=== PATIENT | male | born 1955 | race Caucasian/White ===

== ENCOUNTER 2020-12-05 15:44 | Emergency (ER) | payer OTHER, SELFPAY ==
[2020-12-05 16:00] VITALS: BP 134/87; PULSE 88; RESP 17; TEMP 36.6; O2SAT 97; BMI 37.1
--- NOTE | 2020-12-05 16:15 | ED_ITS ---
[facility] [place] Clinical Impression: Sinusitis Qualifiers: Sinusitis location: maxillary Chronicity: acute Recurrence: non-recurrent Qualified Code(s): J01.00 - Acute maxillary sinusitis, unspecified Disposition: Home, Self-Care Condition on Discharge: Good Instructions: DI for Sinusitis Prescriptions: Amoxicillin/Potassium Clav [Augmentin 875-125 Tablet] 1 tab PO Q12H 10 Days #20 tab Transmission Status: Pending to [facility] # predniSONE [Prednisone 20mg Tab] 20 mg PO BID 5 Days #10 tab Transmission Status: Pending to [facility] # Referrals: Madeline Grayson MD [Primary Care Provider] - Time of Disposition: 16:18 Medical Decision Making - Juancarlos Inquiry Pt receiving controlled substance: No [facility] [place] - General Stated complaint: sinus infection Time Seen by Provider: 12/05/20 16:15 - History of Present Illness Provider Complaint: Pain in left ear, left cheekbone, left jaw, and behind left eye for 5 days. No fever. Left nostril is stopped up. Denies sore throat. No fever. No COVID-19 exposure. Onset (ago): day(s) (5) Relieving factors: none Exacerbating factors: none Associated symptoms: denies other symptoms Treatments prior to arrival: none - Related Data Previous Rx's Medication Instructions Recorded Amoxicillin/Potassium Clav 1 tab PO Q12H 10 Days #20 tab 12/05/20 [Augmentin 875-125 Tablet] predniSONE [Prednisone 20mg 20 mg PO BID 5 Days #10 tab 12/05/20 Tab] [facility] History - Hepatitis A Screen Attestation statement:: This patient has been screened for Hepatitis A risk factors. I have reviewed the patient's past medical history: Yes ROS Obtained: Yes All systems reviewed & no additional complaints - ENT Ears, Nose, Mouth, and Throat: Reports otalgia, Reports sinus pain, Reports sinus pressure Physical Exam - General General appearance: alert, in no apparent distress - Head Head exam: atraumatic, normocephalic - Eye Eye exam: Present: PERRL - Expanded ENT Exam TM/Canal exam: Left TM: erythema Nose exam: Present: sinus tenderness Teeth exam: Absent: dental caries, fractured tooth #, gingival swelling Throat exam: Present: normal inspection - Chest Chest inspection: Present: symmetric chest wall rise - Respiratory Respiratory exam: Present: normal lung sounds bilaterally - Cardiovascular Cardiovascular exam: Present: regular rate, normal rhythm - Neurological Exam Neurological exam: Present: alert, oriented X3 - Psychiatric Psychiatric exam: Present: normal affect, normal mood - Skin Skin exam: Present: warm, dry, intact
[2020-12-05 16:43] VITALS: BP 134/87; PULSE 88; RESP 17; TEMP 36.6; O2SAT 97
== END 2020-12-05 16:45 | disposition home or self-care (01) ==
PROVIDERS: Emergency Provider Physician Assistant; PCP Family Medicine
DX: J01.00 Acute maxillary sinusitis, unspecified (principal)
CPT/HCPCS: 96372; 99202; G0463; J1030

== ENCOUNTER 2022-10-31 10:47 | Emergency (ER) | payer MEDICARE, SELFPAY ==
[2022-10-31 12:00] VITALS: BP 173/101; PULSE 78; RESP 20; TEMP 36.8; O2SAT 96; BMI 36.6
--- NOTE | 2022-10-31 12:41 | EXP.UTC ---
Discharge Plan Disposition Patient Disposition: Home, Self-Care Condition: Good Prescriptions Prescriptions: New prednisone 10 mg tablet 10 mg PO BID 5 Days Qty: 10 0RF amoxicillin-pot clavulanate 875-125 mg Tablet 1 tab PO Q12H Qty: 20 0RF Referrals Follow up/Referrals: Provider,Referral, MD [Primary Care Provider] - See instructions Activity Restrictions/Add. Instructions Additional Instructions/Restrictions: Start oral antibiotics and oral Prednisone tomorrow 11/01/22 Follow up with your Family Doctor if no improvment or any worsening of symptoms Return if needed Straight to ER if any life threatening symptoms Clinical Impressions Clinical Impression: Sinusitis Instructions Patient Instructions: Sinusitis, DI for Sinusitis Discharge ED Provider: Viviana Villarreal [facility] General Stated complaint: Congestion, drainage, RT sinus pain Mode of Arrival: Ambulatory Source of Information: Patient Limitations: No Limitations Time Seen by Provider: 10/31/22 12:41 Description of Symptoms (Recalled from Triage Doc. by RN): PATIENT C/O RIGHT SIDE SINUS PRESSURE, RIGHT EAR PRESSURE, AND LIGHT SENSITIVITY SINCE MONDAY HEENT Symptoms (Recalled from RN notes): Yes Resp Symptoms (Recalled from RN notes): No Skin Symptoms (Recalled from RN notes): No MS Symptoms (Recalled from RN notes): No Functional Status (Recalled from RN notes): WNL History of Present Illness Provider Complaint: Patient states that he has been having pain and pressure in his right sinuses States that he has been having pain and pressure behind his eyes, in his cheek area and even his teeth feel sore like he has had before with sinus infection States after a week he knew he needed to come in and get something States that he has been having sinus headaches at times and has taken advil for them and it helped Related Data Previous Rx's Medication Instructions Recorded amoxicillin 875 mg-potassium 1 tab PO Q12H #20 tabs 10/31/22 clavulanate 125 mg tablet prednisone 10 mg tablet 10 mg PO BID 5 days #10 tabs 10/31/22 Allergies Allergy/AdvReac Type Severity Reaction Status Date / Time No Known Allergies Allergy Verified 12/05/20 16:21 Worker's Comp Is this a Worker's Comp case?: No [facility] Disclaimer: The information contained in this section may have been updated after the patient was seen, as this information can be updated by other users. Medical History (Updated 10/31/22 @ 12:52 by Viviana Villarrela APRN) Prostate disorder Surgical History (Updated 10/31/22 @ 12:20 by Cheryl Echevarria RN) History of tonsillectomy Social History (Updated 10/31/22 @ 12:20 by Cheryl Echevarria RN) Smoking Status: Unknown if ever smoked alcohol intake: never current occupational status: other Travel in the last 8 weeks: None ROS Obtained: Yes All systems reviewed & no additional complaints except as documented and Yes Systems reviewed as appropriate & no additional complaints except as documented Constitutional Constitutional: Reports system reviewed and no additional complaints, except as documented, Reports as per HPI and Reports headache(s) (reports sinus headaches at times) ENT Ears, Nose, Mouth, and Throat: Reports system reviewed and no additional complaints, except as documented, Reports as per HPI, Reports headache(s) (reports sinus headaches at times), Reports sinus pain and Reports sinus pressure Cardiovascular Cardiovascular: Reports system reviewed and no additional complaints, except as documented and Reports as per HPI Respiratory Respiratory: Reports system reviewed and no additional complaints, except as documented and Reports as per HPI Gastrointestinal Gastrointestingal: Reports system reviewed and no additional complaints, except as documented and as per HPI Neurologic Neurologic: Reports headache(s) (reports sinus headaches at times) Physical Exam General General appearance: alert and in no apparent distre
[2022-10-31 13:10] VITALS: BP 146/92; PULSE 78; RESP 20; TEMP 36.8; O2SAT 96
== END 2022-10-31 13:24 | disposition home or self-care (01) ==
PROVIDERS: Emergency Provider Nurse Practitioner
DX: J32.9 Chronic sinusitis, unspecified (principal)
CPT/HCPCS: 96372; 99212; G0463; J0696